=== PATIENT | male | born 1975 | race African-American/Black ===

== ENCOUNTER 2017-12-26 11:27 | Inpatient (IN) | payer OTHER ==
[2017-12-26 12:00] VITALS: BMI 28.5
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
[2017-12-26] MEDS ORDERED: MAG HYDROX/AL HYDROX/SIMETH 30 ML UNIT-DOSE CUP PO PRN (13:42)
[2017-12-26] MEDS ORDERED: IBUPROFEN 400 MG TABLET (FP) PO PRN (13:42)
[2017-12-26] MEDS ORDERED: MAGNESIUM HYDROX 2400MG/30ML ORAL SUSPENSION 30 ML CUP PO PRN (13:42)
[2017-12-26] MEDS ORDERED: P-EPHED 60MG/TRIPROLIDI 2.5MG TABLET PO PRN (13:42)
[2017-12-26] MEDS ORDERED: LOPERAMIDE HCL 2 MG CAPSULE PO PRN (13:42)
[2017-12-26] MEDS ORDERED: MAGNESIUM CITRATE 300 ML BOTTLE PO PRN (13:42)
[2017-12-26] MEDS ORDERED: guaiFENesin/D-METHORPHAN HB 10 ML UNIT-DOSE CUPS PO PRN (13:42)
[2017-12-26] MEDS ORDERED: hydrOXYzine PAMOATE 50 MG CAPSULE (FP) PO PRN (13:42)
[2017-12-26] MEDS ORDERED: chlordiazePOXIDE HCL 25 MG CAPSULE PO PRN (13:42)
[2017-12-26] MEDS ORDERED: NICOTINE POLACRILEX 2 MG GUM BUC PRN (13:42)
[2017-12-26] MEDS ORDERED: ACETAMINOPHEN 325 MG TABLET (FP) PO PRN (13:42)
[2017-12-26] MEDS ORDERED: MENTHOL/PHENOL 1 EACH UD MM PRN (13:42)
[2017-12-26] MEDS ORDERED: chlordiazePOXIDE HCL 25 MG CAPSULE PO ONE (14:30)
[2017-12-26] MEDS: DIVALPROEX SODIUM 500 MG TABLET E.C. PO SCH ×2 (15:28→22:21)
[2017-12-26] MEDS: NICOTINE 14 MG/24 HOURS TOPICAL PATCH TD SCH (15:29)
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
[2017-12-26 17:15] LABS: HEMATOCRIT 37.3 % (35.4-49); HEMOGLOBIN 12.4 GM/dL (11.7-16.9); MCH 32.5 pg (25.7-33.7); MCHC 33.4 g/dl (32.0-35.9); MEAN CELL VOLUME 97.3 fl (80-96); MEAN PLT VOLUME 10.1 fl (7.5-11.1); PLATELET COUNT 190 K/MM3 (134-434); RBC 3.83 M/mm3 (4.00-5.60); RDW 12.7 % (11.9-15.9); WHITE BLOOD COUNT 4.7 K/mm3 (4.0-10.0)
[2017-12-26 17:32] LABS: URINE APPEARANCE CLEAR; URINE BILIRUBIN NEGATIVE (NEGATIVE); URINE BLOOD NEGATIVE (NEGATIVE); URINE COLOR DKYELLOW; URINE GLUCOSE (UA) NEGATIVE (NEGATIVE); URINE KETONE TRACE (NEGATIVE); URINE LEUK ESTERASE TRACE (NEGATIVE); URINE NITRITE NEGATIVE (NEGATIVE); URINE PROTEIN NEGATIVE (NEGATIVE)
[2017-12-26 17:45] LABS: ALBUMIN 3.5 g/dl (3.4-5.0); ANION GAP 6 (8-16); BLOOD UREA NITROGEN 19 mg/dL (7-18); CALCIUM 8.3 mg/dL (8.5-10.1); CHLORIDE 108 mmol/L (98-107); CO2 28 mmol/L (21-32); GLUCOSE,RANDOM 100 mg/dL (74-106); POTASSIUM 3.7 mmol/L (3.5-5.1); SGOT/AST 24 U/L (15-37); SGPT/ALT 19 U/L (12-78); SODIUM 142 mmol/L (136-145)
[2017-12-26 17:47] LABS: ALK PHOS 121 U/L (45-117); BILIRUBIN,TOTAL 0.3 mg/dL (0.2-1.0); CREATININE 1.1 mg/dL (0.7-1.3); TOT PROT 6.5 g/dl (6.4-8.2)
[2017-12-26] MEDS: chlordiazePOXIDE HCL 25 MG CAPSULE PO SCH ×2 (17:53→22:21)
[2017-12-26 19:26] LABS: EPI CELLS RARE /HPF (FEW); URINE MUCUS MODERATE
[2017-12-26 19:35] LABS: SICKLE CELL SCREEN NEGATIVE (NEGATIVE)
[2017-12-26] MEDS ORDERED: diphenhydrAMINE HCL 50 MG CAPSULE PO PRN (22:00)
[2017-12-26] MEDS: THIAMINE HCL 100 MG TABLET (FP) PO SCH (22:21)
[2017-12-27] MEDS: chlordiazePOXIDE HCL 25 MG CAPSULE PO SCH ×4 (06:05→22:19)
[2017-12-27] MEDS: DIVALPROEX SODIUM 500 MG TABLET E.C. PO SCH ×3 (06:05→22:19)
[2017-12-27] MEDS: PRENATAL VITAMINS W/ FOLIC ACID TABLET (FP) PO SCH (10:43)
[2017-12-27] MEDS: NICOTINE 14 MG/24 HOURS TOPICAL PATCH TD SCH (10:44)
[2017-12-27] MEDS: SERTRALINE HCL 50 MG TABLET (FP) PO SCH (10:44)
--- NOTE | 2017-12-27 12:11 | PN ---
S CIWA - CIWA Score Nausea/Vomitin-No Nausea/No Vomiting Muscle Tremors: 3 Anxiety: 3 Agitation: 2 Paroxysmal Sweats: 3 Orientation: 0-Oriented Tacttile Disturbances: 3-Moderate Itch/Numb/Burn Auditory Disturbances: 0-None Visual Disturbances: 2-Mild Sensitivity Headache: 0-None Present CIWA-Ar Total Score: 16 BHS Progress Note (SOAP) Subjective: Body Aches, Tremors, Fatigue, Sweating. Objective: PT. A & O X 3, OBSERVED AMBULATING ON UNIT. NO ACUTE DISTRESS. 12/27/17 12:09 Vital Signs Temperature 97.9 F 12/27/17 09:38 Pulse Rate 70 12/27/17 09:38 Respiratory Rate 18 12/27/17 09:38 Blood Pressure 115/69 12/27/17 09:38 O2 Sat by Pulse Oximetry (%) Laboratory Tests 12/26/17 12/26/17 12/26/17 13:50 13:50 13:50 WBC 4.7 RBC 3.83 L Hgb 12.4 Hct 37.3 MCV 97.3 H MCH 32.5 MCHC 33.4 RDW 12.7 Plt Count 190 MPV 10.1 Sickle Cell Screen Negative Sodium 142 Potassium 3.7 Chloride 108 H Carbon Dioxide 28 Anion Gap 6 L BUN 19 H Creatinine 1.1 Creat Clearance w eGFR > 60 Random Glucose 100 Calcium 8.3 L Total Bilirubin 0.3 AST 24 ALT 19 Alkaline Phosphatase 121 H Total Protein 6.5 Albumin 3.5 Urine Color Urine Appearance Urine pH Ur Specific [place] Urine Protein Urine Glucose (UA) Urine Ketones Urine Blood Urine Nitrite Urine Bilirubin Urine Urobilinogen Ur Leukocyte Esterase Urine WBC (Auto) Urine RBC (Auto) Ur Epithelial Cells Urine Mucus Valproic Acid 39.821 L 12/26/17 15:40 WBC RBC Hgb Hct MCV MCH MCHC RDW Plt Count MPV Sickle Cell Screen Sodium Potassium Chloride Carbon Dioxide Anion Gap BUN Creatinine Creat Clearance w eGFR Random Glucose Calcium Total Bilirubin AST ALT Alkaline Phosphatase Total Protein Albumin Urine Color Dkyellow Urine Appearance Clear Urine pH 5.0 Ur Specific [place] 1.030 Urine Protein Negative Urine Glucose (UA) Negative Urine Ketones Trace H Urine Blood Negative Urine Nitrite Negative Urine Bilirubin Negative Urine Urobilinogen 2.0 Ur Leukocyte Esterase Trace Urine WBC (Auto) 5 Urine RBC (Auto) 1 Ur Epithelial Cells Rare Urine Mucus Moderate Valproic Acid LABS NOTED. RPR RESULT PENDING. 12/27/17 12:11 Assessment: 12/27/17 12:10 WITHDRAWAL SYMPTOMS. Plan: CONTINUE DETOX.
--- NOTE | 2017-12-27 14:22 | EKG ---
Test Reason : Blood Pressure : / mmHG Vent. Rate : 060 BPM Atrial Rate : 060 BPM P-R Int : 172 ms QRS Dur : 094 ms QT Int : 398 ms P-R-T Axes : 051 049 038 degrees QTc Int : 398 ms NORMAL SINUS RHYTHM NORMAL ECG NO PREVIOUS ECGS AVAILABLE Confirmed by BELINDA FERREIRA MD ([id number]) on 12/27/2017 2:22:11 PM Referred By: Confirmed By:BELINDA FERREIRA MD
--- NOTE | 2017-12-27 17:29 | PN ---
[facility] Progress Note Note: Psychiatric nurse practitioner: Pt. able to tolerate risperdal 1mg. As per patient, risperdal 3mg was his dosage while he was incarcerated in 2017. Pt. requesting risperdal increased to 2mg. No complaints of side effects. Pt. agreeable to risperdal 2mg. Benefits and side effects discussed. Pt. made aware of the risk of Priapism, gynecomastia , and extrapyramidal effects such as involuntary movements of the head, neck, arms, body or eyes. Verbal consent given.
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
[2017-12-27] MEDS ORDERED: risperiDONE 1 MG TABLET (FP) PO SCH (22:00)
[2017-12-27] MEDS: THIAMINE HCL 100 MG TABLET (FP) PO SCH (22:18)
[2017-12-27] MEDS: risperiDONE 2 MG TABLET PO SCH (22:19)
[2017-12-28] MEDS: DIVALPROEX SODIUM 500 MG TABLET E.C. PO SCH ×3 (06:37→22:14)
[2017-12-28] MEDS: chlordiazePOXIDE HCL 25 MG CAPSULE PO SCH ×2 (06:39→10:30)
[2017-12-28] MEDS: NICOTINE 14 MG/24 HOURS TOPICAL PATCH TD SCH (10:30)
[2017-12-28] MEDS: SERTRALINE HCL 50 MG TABLET (FP) PO SCH (10:30)
[2017-12-28] MEDS: PRENATAL VITAMINS W/ FOLIC ACID TABLET (FP) PO SCH (10:30)
--- NOTE | 2017-12-28 13:30 | PN ---
[facility] CIWA - CIWA Score Nausea/Vomitin-Mild Nausea/No Vomiting Muscle Tremors: 4-Moderate,w/Arms Extend Anxiety: 4-Mod. Anxious/Guarded Agitation: 4-Moderately Restless Paroxysmal Sweats: 3 Orientation: 0-Oriented Tacttile Disturbances: 1-Very Mild Itch/Numbness Auditory Disturbances: 0-None Visual Disturbances: 0-None Headache: 0-None Present CIWA-Ar Total Score: 17 S Progress Note (SOAP) Subjective: Tremor, interrupted sleep, chills Objective: 12/28/17 13:28 Last Vital Signs Temp Pulse Resp BP Pulse Ox 97.2 F L 71 18 104/58 12/28/17 13:16 12/28/17 13:16 12/28/17 13:16 12/28/17 13:16 Laboratory Tests 12/26/17 12/26/17 12/26/17 13:50 13:50 13:50 WBC 4.7 RBC 3.83 L Hgb 12.4 Hct 37.3 MCV 97.3 H MCH 32.5 MCHC 33.4 RDW 12.7 Plt Count 190 MPV 10.1 Sickle Cell Screen Negative Sodium 142 Potassium 3.7 Chloride 108 H Carbon Dioxide 28 Anion Gap 6 L BUN 19 H Creatinine 1.1 Creat Clearance w eGFR > 60 Random Glucose 100 Calcium 8.3 L Total Bilirubin 0.3 AST 24 ALT 19 Alkaline Phosphatase 121 H Total Protein 6.5 Albumin 3.5 Urine Color Urine Appearance Urine pH Ur Specific [place] Urine Protein Urine Glucose (UA) Urine Ketones Urine Blood Urine Nitrite Urine Bilirubin Urine Urobilinogen Ur Leukocyte Esterase Urine WBC (Auto) Urine RBC (Auto) Ur Epithelial Cells Urine Mucus Valproic Acid RPR Titer Nonreactive 12/26/17 12/26/17 13:50 15:40 WBC RBC Hgb Hct MCV MCH MCHC RDW Plt Count MPV Sickle Cell Screen Sodium Potassium Chloride Carbon Dioxide Anion Gap BUN Creatinine Creat Clearance w eGFR Random Glucose Calcium Total Bilirubin AST ALT Alkaline Phosphatase Total Protein Albumin Urine Color Dkyellow Urine Appearance Clear Urine pH 5.0 Ur Specific [place] 1.030 Urine Protein Negative Urine Glucose (UA) Negative Urine Ketones Trace H Urine Blood Negative Urine Nitrite Negative Urine Bilirubin Negative Urine Urobilinogen 2.0 Ur Leukocyte Esterase Trace Urine WBC (Auto) 5 Urine RBC (Auto) 1 Ur Epithelial Cells Rare Urine Mucus Moderate Valproic Acid 39.821 L RPR Titer Labs noted Assessment: 12/28/17 13:29 Withdrawal symptoms Plan: Continue detox Encouraged PO hydration (water)
[2017-12-28] MEDS: chlordiazePOXIDE 5 MG CAPSULE PO SCH ×2 (17:44→22:14)
[2017-12-28] MEDS: THIAMINE HCL 100 MG TABLET (FP) PO SCH (22:14)
[2017-12-28] MEDS: risperiDONE 2 MG TABLET PO SCH (22:14)
[2017-12-29] MEDS: chlordiazePOXIDE 5 MG CAPSULE PO SCH ×2 (05:45→10:14)
[2017-12-29] MEDS: DIVALPROEX SODIUM 500 MG TABLET E.C. PO SCH ×3 (05:46→22:14)
[2017-12-29] MEDS: PRENATAL VITAMINS W/ FOLIC ACID TABLET (FP) PO SCH (10:14)
[2017-12-29] MEDS: NICOTINE 14 MG/24 HOURS TOPICAL PATCH TD SCH (10:14)
[2017-12-29] MEDS: SERTRALINE HCL 50 MG TABLET (FP) PO SCH (10:14)
[2017-12-29] MEDS: chlordiazePOXIDE HCL 10 MG CAPSULE PO SCH ×2 (17:14→22:13)
--- NOTE | 2017-12-29 21:46 | PN ---
[facility] Progress Note (SOAP) Subjective: shakes sweats on and off sleep Objective: 12/29/17 21:44 A & O x 3 ambulating freely within unit Assessment: 12/29/17 21:46 withdrawal sx Plan: continue detox
[2017-12-29] MEDS: THIAMINE HCL 100 MG TABLET (FP) PO SCH (22:13)
[2017-12-29] MEDS: risperiDONE 2 MG TABLET PO SCH (22:14)
[2017-12-30] MEDS: chlordiazePOXIDE HCL 10 MG CAPSULE PO SCH (05:51)
[2017-12-30] MEDS: DIVALPROEX SODIUM 500 MG TABLET E.C. PO SCH (05:51)
[2017-12-30 05:56] VITALS: BP 107/67; PULSE 66; TEMP 97.6
--- NOTE | 2017-12-30 09:08 | DS ---
[facility] Detox Discharge Summary Admission Date: 12/26/17 Discharge Date: 12/30/17 - History Present History: Alcohol Dependence, Cannabis Dependence, Cocaine Dependence Additional Comments: PT D/C'D VERY EARLY TODAY. DETOX COMPLETED. Pertinent Past History: SEE DX BELOW - Physical Exam Results Vital Signs: Vital Signs Temperature 97.6 F 12/30/17 05:56 Pulse Rate 66 12/30/17 05:56 Respiratory Rate 18 12/30/17 05:56 Blood Pressure 107/67 12/30/17 05:56 O2 Sat by Pulse Oximetry (%) Pertinent Admission Physical Exam Findings: WITHDRAWAL SX Laboratory Last Values WBC 4.7 K/mm3 (4.0-10.0) 12/26/17 13:50 RBC 3.83 M/mm3 (4.00-5.60) L 12/26/17 13:50 Hgb 12.4 GM/dL (11.7-16.9) 12/26/17 13:50 Hct 37.3 % (35.4-49) 12/26/17 13:50 MCV 97.3 fl (80-96) H 12/26/17 13:50 MCH 32.5 pg (25.7-33.7) 12/26/17 13:50 MCHC 33.4 g/dl (32.0-35.9) 12/26/17 13:50 RDW 12.7 % (11.9-15.9) 12/26/17 13:50 Plt Count 190 K/MM3 (134-434) 12/26/17 13:50 MPV 10.1 fl (7.5-11.1) 12/26/17 13:50 Sickle Cell Screen Negative (NEGATIVE) 12/26/17 13:50 Sodium 142 mmol/L (136-145) 12/26/17 13:50 Potassium 3.7 mmol/L (3.5-5.1) 12/26/17 13:50 Chloride 108 mmol/L (98-107) H 12/26/17 13:50 Carbon Dioxide 28 mmol/L (21-32) 12/26/17 13:50 Anion Gap 6 (8-16) L 12/26/17 13:50 BUN 19 mg/dL (7-18) H 12/26/17 13:50 Creatinine 1.1 mg/dL (0.7-1.3) 12/26/17 13:50 Creat Clearance w eGFR > 60 (>60) 12/26/17 13:50 Random Glucose 100 mg/dL (74-106) 12/26/17 13:50 Calcium 8.3 mg/dL (8.5-10.1) L 12/26/17 13:50 Total Bilirubin 0.3 mg/dL (0.2-1.0) 12/26/17 13:50 AST 24 U/L (15-37) 12/26/17 13:50 ALT 19 U/L (12-78) 12/26/17 13:50 Alkaline Phosphatase 121 U/L (45-117) H 12/26/17 13:50 Total Protein 6.5 g/dl (6.4-8.2) 12/26/17 13:50 Albumin 3.5 g/dl (3.4-5.0) 12/26/17 13:50 Urine Color Dkyellow 12/26/17 15:40 Urine Appearance Clear 12/26/17 15:40 Urine pH 5.0 (5.0-8.0) 12/26/17 15:40 Ur Specific [place] 1.030 (1.001-1.035) 12/26/17 15:40 Urine Protein Negative (NEGATIVE) 12/26/17 15:40 Urine Glucose (UA) Negative (NEGATIVE) 12/26/17 15:40 Urine Ketones Trace (NEGATIVE) H 12/26/17 15:40 Urine Blood Negative (NEGATIVE) 12/26/17 15:40 Urine Nitrite Negative (NEGATIVE) 12/26/17 15:40 Urine Bilirubin Negative (NEGATIVE) 12/26/17 15:40 Urine Urobilinogen 2.0 mg/dL (0.2-1.0) 12/26/17 15:40 Ur Leukocyte Esterase Trace (NEGATIVE) 12/26/17 15:40 Urine WBC (Auto) 5 /hpf (3-5) 12/26/17 15:40 Urine RBC (Auto) 1 /hpf (0-3) 12/26/17 15:40 Ur Epithelial Cells Rare /HPF (FEW) 12/26/17 15:40 Urine Mucus Moderate 12/26/17 15:40 Valproic Acid 39.821 ug/ml (50-100) L 12/26/17 13:50 RPR Titer Nonreactive (NONREACTIVE) 12/26/17 13:50 - Treatment Hospital Course: Detox Protocol Followed, Detoxed Safely, Responded well, Discharged Condition Good - Medication Discharge Medications: Ambulatory Orders Divalproex [Depakote -] 500 mg PO TID 12/26/17 - Diagnosis (1) Alcohol dependence with uncomplicated withdrawal Status: Acute (2) Cocaine dependence, uncomplicated Status: Acute (3) Cannabis dependence, uncomplicated Status: Acute (4) Blind left eye Status: Chronic (5) Narcolepsy Status: Chronic (6) Seizure disorder Status: Chronic - AMA Did Patient Leave Against Medical Advice: No
== END 2017-12-30 07:05 | disposition home or self-care (01) | DRG 774 ==
LOC: EDBD → YASAS 11:27 → Y3N 13:40
PROVIDERS: ADMIT Internal Medicine; ATTEND Internal Medicine
PROC: HZ2ZZZZ Detoxification Services for Substance Abuse Treatment (ICD-10-PCS; principal; 2017-12-26)
DX: F10.230 Alcohol dependence with withdrawal, uncomplicated (principal); F14.20 Cocaine dependence, uncomplicated; F12.20 Cannabis dependence, uncomplicated; F17.210 Nicotine dependence, cigarettes, uncomplicated; F20.9 Schizophrenia, unspecified; F32.9 Major depressive disorder, single episode, unspecified; F31.9 Bipolar disorder, unspecified; G40.909 Epilepsy, unspecified, not intractable, without status epilepticus; H54.40 Blindness, one eye, unspecified eye; G47.419 Narcolepsy without cataplexy
CPT/HCPCS: 36415; 80053; 80164; 81003; 81015; 85027; 85660; 86593; 93005; 93010